=== PATIENT | female | born 1975 | race Caucasian/White ===

== ENCOUNTER 2019-02-19 10:00 | Inpatient (IN) | payer OTHER ==
[2019-02-19] MEDS ORDERED: DEXTROSE 5%-LACTATED RINGERS 1,000 ML IV SCH (11:30)
[2019-02-19] MEDS ORDERED: ELECTROLYTE-148 SOLN 1,000 ML IV SCH ×2 (16:00→21:30)
[2019-02-19] MEDS ORDERED: AMPICILLIN SODIUM 2 GM VIAL IVPB STA (16:00)
[2019-02-19 16:41] VITALS: BMI 34.0
[2019-02-19 17:10] LABS: BASO % 0.5 % (0-2.0); EOS % 0.1 % (0-4.5); HEMATOCRIT 37.8 % (32.4-45.2); HEMOGLOBIN 12.9 GM/dL (10.7-15.3); LYMPH % 13.3 % (8-40); MCH 31.7 pg (25.7-33.7); MCHC 34.1 g/dl (32.0-36.0); MEAN CELL VOLUME 92.9 fl (80-96); MEAN PLT VOLUME 10.9 fl (7.5-11.1); MONO % 6.1 % (3.8-10.2); PLATELET COUNT 171 K/MM3 (134-434); RBC 4.07 M/mm3 (3.60-5.2); RDW 13.8 % (11.6-15.6); WHITE BLOOD COUNT 13.8 K/mm3 (4.0-10.0)
[2019-02-19 17:24] LABS: INR 0.92 (0.83-1.09); PROTHROMBIN TIME (PATIENT) 10.8 SEC (9.7-13.0)
[2019-02-19 17:27] LABS: ACTIVATED PTT 27.1 SECONDS (25.2-36.5)
[2019-02-19] MEDS ORDERED: PROMETHAZINE HCL 25 MG/1 ML VIAL IVPB ONE (17:35)
[2019-02-19] MEDS ORDERED: BUTORPHANOL TARTRATE 2 MG/ML VIAL IVPB ONE (17:35)
[2019-02-19 17:45] LABS: BLOOD UREA NITROGEN 6.9 mg/dL (7-18); CALCIUM 8.6 mg/dL (8.5-10.1); CREATININE 0.6 mg/dL (0.55-1.3); POTASSIUM 3.7 mmol/L (3.5-5.1)
[2019-02-19] MEDS: AMPICILLIN SODIUM 1 GM VIAL IVPB SCH (19:55)
[2019-02-19] MEDS ORDERED: BUTORPHANOL TARTRATE 1 MG/ML VIAL IVPB ONE (21:17)
[2019-02-19] MEDS ORDERED: PROMETHAZINE HCL 25 MG/1 ML VIAL IVPUSH ONE (21:17)
--- NOTE | 2019-02-19 21:17 | HP ---
Past Medical History - Primary Care Physician PCP:: Ese Garcia - Admission Chief Complaint: srom at 37 weeks History of Present Illness: 43 yo P1 EDC EGA 37 week with co srom and vaginal bleeding, GBS positive, gestational DM diet controlled, AMA Hx of placenta previa admitted LD No abdominal pain or ruq pain History Source: Patient Limitations to Obtaining History: No Limitations - Past Medical History ...: 5 ...Para: 1 ...Term: 1 ...: 0 ...Spon : 0 ...Induced : 3 ...Multiple Gestation: 0 ...EDC by Sono: 03/11/19 Endocrine: Yes: Diabetes Mellitus - Past Surgical History Past Surgical History: Yes: None Hx Myomectomy: No Hx Transabdominal Cerclage: No - Smoking History Smoking history: Current every day smoker Have you smoked in the past 12 months: Yes Aproximately how many cigarettes per day: 5 - Alcohol/Substance Use Hx Alcohol Use: No History of Substance Use: reports: None - Social History Usual Living Arrangement: Yes: With Spouse History of Recent Travel: No Home Medications - Allergies Allergies/Adverse Reactions: Allergies Allergy/AdvReac Type Severity Reaction Status Date / Time No Known Allergies Allergy Verified 02/19/19 10:35 - Home Medications Home Medications: Ambulatory Orders Vitamins (Sjr) - 1 tab PO DAILY 02/19/19 Physical Exam - Maternity Vital Signs: Vital Signs Temperature 99.0 F 02/19/19 20:00 Pulse Rate 59 L 02/19/19 20:15 Respiratory Rate 18 02/19/19 20:15 Blood Pressure 110/56 L 02/19/19 20:15 O2 Sat by Pulse Oximetry (%) Constitutional: Yes: Well Nourished, No Distress Eyes: Yes: WNL HENT: Yes: WNL Cardiovascular: Yes: WNL Lungs: Clear to auscultation - Abdominal Exam/OB Fundal Height: 37 Number of Fetuses: Single Presentation: Vertex Monitor Mode: External Category: I Decelerations: None - Vaginal Exam/OB Dilatation (cm): 6 Effacement (%): 90 Amniotic Membrane Status: Ruptured Amniotic Fluid: Yes: Blood Stained Presentation: Vertex/Position Station: -3 - Physical Exam Musculoskeletal: Yes: WNL Extremities: Yes: WNL Edema: No - Labs Lab Results: CBC, BMP 02/19/19 17:05 02/19/19 17:05 Hemorrhage Risk Assessment - Risk Factors High Risk Factors: Yes: Placenta previa, low lying Risk Score: 2 Risk Level: High Risk Problem List - Problems (1) Vaginal bleeding with contractions and pain in patient after first trimester Code(s): O46.8X1 - OTHER ANTEPARTUM HEMORRHAGE, FIRST TRIMESTER (2) Gestational diabetes Code(s): O24.419 - GESTATIONAL DIABETES MELLITUS IN , UNSP CONTROL Qualifiers: Gestational diabetes mellitus control: diet-controlled Trimester: third trimester Qualified Code(s): O24.410 - Gestational diabetes mellitus in , diet controlled (3) 37 weeks gestation of Code(s): Z3A.37 - 37 WEEKS GESTATION OF (4) Elderly multigravida in third trimester Code(s): O09.523 - SUPERVISION OF ELDERLY MULTIGRAVIDA, THIRD TRIMESTER (5) Elderly multigravida with antepartum condition or complication Code(s): O09.529 - SUPERVISION OF ELDERLY MULTIGRAVIDA, UNSPECIFIED TRIMESTER (6) GBS (group B Streptococcus carrier), +RV culture, currently Code(s): O99.820 - STREPTOCOCCUS B CARRIER STATE COMPLICATING Assessment/Plan iup at 37 week vaginal bleeding hx of low lying placenta AMA GBS gestational DM diet controlled 01/30 BPP Cat1 Plan admit to LD ampicillin will give epidural
--- NOTE | 2019-02-19 21:25 | PN ---
Ante-Partal Exam - Subjective Subjective: Pt with vaginal bleeding prior to this exam clear fluid upon exam Cat 2 tracing internal monitoring SP epidural Plan mclean catheter close observation discussed possiblity of CS if bleeeding returns of if tracing does not improve Vital Signs: Vital Signs Temperature 99.0 F 02/19/19 21:00 Pulse Rate 60 02/19/19 21:00 Respiratory Rate 18 02/19/19 21:00 Blood Pressure 109/58 L 02/19/19 21:00 O2 Sat by Pulse Oximetry (%) Bleeding: Yes Bleeding Description: Moderate Headache: No Visual changes: No Right upper quadrant pain: No - Contractions Contractions: Yes Regularity: Regular Intensity: Mild/Mod Monitor Mode: External - Exam during Labor Heart Rate: 125 Variability: Minimal Category: II Monitor Accelerations: Present Monitor Decelerations: Variable Exam: Vaginal Dilatation (cm): 6 Effacement (%): 90 Amniotic Membrane Status: Ruptured Presentation: Vertex Station: -3 - Intrapartum Hemorrhage Risk Risk Score: 1 Risk Level: Medium Risk - Assessment/Plan Assessment/Plan: Gestational DM - diet controlled GBS positive Cat 2 vaginal bleeding - stopped presently Hx of low lying placenta Plan Close observation mclean cath may need CS if bleeding returns or if tracing does not improve pt desires vaginal delivery
[2019-02-19] MEDS ORDERED: OXYTOCIN 30 UNITS in 0.9% NS 30 UNIT/500 ML INFUS.BAG IVPB SCH (21:30)
--- NOTE | 2019-02-19 21:30 | PN ---
Ante-Partal Exam - Subjective Subjective: Pt with still bleeding Vital Signs: Vital Signs Temperature 99.0 F 02/19/19 21:00 Pulse Rate 60 02/19/19 21:00 Respiratory Rate 18 02/19/19 21:00 Blood Pressure 109/58 L 02/19/19 21:00 O2 Sat by Pulse Oximetry (%) Bleeding: Yes Bleeding Description: Moderate Headache: No Visual changes: No Right upper quadrant pain: No - Contractions Contractions: Yes Monitor Mode: External - Exam during Labor Heart Rate: 125 Variability: Minimal Category: II Monitor Accelerations: Present Monitor Decelerations: Variable Exam: Vaginal Dilatation (cm): 6 cm Effacement (%): 90 Amniotic Membrane Status: Ruptured Amniotic Fluid: Clear Presentation: Vertex Station: -3 - Intrapartum Hemorrhage Risk High Risk Factors: New Active Bleeding Risk Score: 2 Risk Level: High Risk - Assessment/Plan Assessment/Plan: ass Vaginal bleeding Hx of Low lying placenta Cat 2 gestational DM GBS positive Plan section pt and agree notify neonatology Notify anesthesiologist
[2019-02-19] MEDS ORDERED: CITRIC ACID/SODIUM CITRATE 30 ML UNIT-DOSE CUP PO ONE (21:57)
[2019-02-19] MEDS ORDERED: SENNOSIDES/DOCUSATE COMBO (SENNA PLUS) TABLET (UD) PO PRN (21:58)
[2019-02-19] MEDS ORDERED: METHYLERGONOVINE MALEATE 0.2 MG/1 ML AMP IM PRN (21:58)
[2019-02-19] MEDS ORDERED: LIDO 2%/EPI 1:200000 PRESRVFRE (20 ML SDVIAL) ONE (22:08)
[2019-02-19] MEDS ORDERED: ceFAZolin SODIUM 1 GM VIAL ONE (22:25)
[2019-02-19] MEDS ORDERED: OXYTOCIN 10 UNITS/ML VIAL ONE (22:39)
[2019-02-19] MEDS ORDERED: morphine SULFATE/PF 0.5 MG/ML (2cc Syringe - QUVA) ONE ×3 (22:46)
[2019-02-19] MEDS: OXYTOCIN 20 UNITS in 0.9% NS 20 UNIT/1,000 ML INFUS.BAG IV SCH (23:15)
--- NOTE | 2019-02-19 23:17 | OP ---
Operative Note - Note: Operative Date: 02/19/19 Pre-Operative Diagnosis: Abnormal vaginal bleeding. non reassuring tracing. IUP at 37 weeks. geatational DM. GBS positive. AMA. Operation: Primary low transverse Section Findings: uterus with blood clots seen upon opening uterus LIve female 9 9 Post-Operative Diagnosis: Same as Pre-op Surgeon: Ese Garcia Formal Wear Rental Clerk: Lynn Dolan Anesthesia: Epidural Estimated Blood Loss (mls): 600 Operative Report Dictated: Yes
[2019-02-20] MEDS: AMPICILLIN SODIUM 1 GM VIAL IVPB SCH (00:44)
[2019-02-20] MEDS: CEFAZOLIN 1 GM/D5W 1 GM/50 ML BAG IVPB SCH ×3 (01:24→18:39)
[2019-02-20] MEDS: IBUPROFEN 600 MG TABLET (FP) PO PRN ×3 (02:46→21:23)
[2019-02-20] MEDS: SIMETHICONE 80 MG TAB.CHEW (FP) PO PRN ×2 (02:46→21:23)
--- NOTE | 2019-02-20 06:29 | OP ---
DATE OF OPERATION: 02/19/2019 PREOPERATIVE DIAGNOSES: Vaginal bleeding, nonreassuring tracing, gestational diabetes, advanced maternal age, intrauterine at 37 weeks. OPERATION: Primary section. POSTOPERATIVE DIAGNOSES: Vaginal bleeding, nonreassuring tracing, gestational diabetes, advanced maternal age, intrauterine at 37 weeks. Live female . SURGEON: Ese Garcia MD INTERNATIONAL PROJECT ENGINEER: Lynn Dolan MD ANESTHESIA: Epidural. ANESTHESIOLOGIST: Nathaniel Polo MD FINDINGS: Uterus noted to have clots within the uterus. Placenta was noted to be intact. DESCRIPTION OF PROCEDURE: Patient was taken to the operating room. Placed in supine position, prepped and draped in usual sterile fashion. After epidural anesthesia had been given, the Pfannenstiel skin incision was made through the patient's previous scar. Cautery was then used to go through layers of abdominal wall to the level of the fascia. Fascia was cut in the midline. Cautery was then used to open the fascia in a smiling fashion. Kochers were then used to bluntly, sharply dissect the rectus muscle off the fascia. Muscle was split in the midline. Peritoneal cavity was then entered and carried upward and downward. Bladder retractor was then placed. Vesicouterine reflection was then entered, and the bladder was bluntly dissected out of the operative field. Scalpel was then used to make a low transverse uterine incision. Incision was carried upward using bandage scissors. Vacuum extraction was then performed at the table due to baby was transverse and high position. It was delivered without difficulty. Shoulders were delivered without difficulty. Cord was clamped and cut, and infant was handed to overnight caregiver. Cord blood was obtained. Cord pH was obtained. Placenta was manually extracted from the uterus. Again, uterus was noted to have blood clots in the lower segments. Those were cleaned out, and uterus was then exteriorized and closed using 0 Biosyn suture in continuous locking stitch 2nd layer imbricating the 1st layer. Hemostasis was achieved. Tubes and ovaries were noted to be normal. Uterus interiorized. Abdominal cavity cleaned with clean lap pads. Abdominal sweep done. Peritoneum closed using 0 Biosyn suture. Muscle was approximated in the midline using 0 Biosyn suture. Fascia was then closed using 0 Vicryl suture in 2 parts. The skin was then closed using 3-0 Vicryl in subcuticular fashion. Wound was washed and dressed. Patient tolerated the procedure well. Estimated blood loss was 600 mL. Carmen [id number]
[2019-02-20 08:21] LABS: BASO % 0.3 % (0-2.0); HEMATOCRIT 35.6 % (32.4-45.2); HEMOGLOBIN 12.2 GM/dL (10.7-15.3); LYMPH % 11.3 % (8-40); MCH 32.2 pg (25.7-33.7); MCHC 34.4 g/dl (32.0-36.0); MEAN CELL VOLUME 93.5 fl (80-96); MEAN PLT VOLUME 11.3 fl (7.5-11.1); MONO % 4.4 % (3.8-10.2); PLATELET COUNT 171 K/MM3 (134-434); RDW 13.9 % (11.6-15.6); WHITE BLOOD COUNT 15.8 K/mm3 (4.0-10.0)
[2019-02-20] MEDS: PRENATAL VITAMINS W/ FOLIC ACID TABLET (FP) PO SCH (09:09)
--- NOTE | 2019-02-20 09:59 | PN ---
Progress Note (SOAP) - Current Medications Current Medications: Active Medications Bisacodyl (Dulcolax Suppository -) 10 mg RC PRN PRN PRN Reason: CONSTIPATION Ferrous Sulfate (Feosol -) 325 mg PO BID [facility] Parenteral Electrolytes (Plasma-Lyte 148 -) 1,000 mls @ 125 mls/hr IV ASDIR [facility] Last Admin: 02/19/19 21:00 Dose: 125 mls/hr Cefazolin Sodium (Ancef 1 Gm Premixed Ivpb -) 1 gm in 50 mls @ 100 mls/hr IVPB Q8H-IV [facility] Stop: 02/21/19 01:59 Last Admin: 02/20/19 09:10 Dose: 100 mls/hr Oxytocin/Sodium Chloride (Normal Saline+20 Units Oxytocin -) 20 unit in 1,000 mls @ 125 mls/hr IV ASDIR [facility] Last Admin: 02/19/19 23:15 Dose: 125 mls/hr Ibuprofen (Motrin -) 600 mg PO Q4H PRN PRN Reason: PAIN LEVEL 1 - 3 Last Admin: 02/20/19 02:46 Dose: 600 mg Methylergonovine Maleate (Methergine Injection -) 0.2 mg IM Q4H PRN PRN Reason: Excessive Bleeding (L&D) Oxycodone HCl (Roxicodone -) 5 mg PO Q4H PRN PRN Reason: PAIN LEVEL 4 - 6 Oxycodone HCl (Roxicodone -) 10 mg PO Q4H PRN PRN Reason: PAIN LEVEL 7 - 10 Multivit/Folic Acid/Iron ( Vitamins (Sjr) -) 1 tab PO DAILY [facility] Last Admin: 02/20/19 09:09 Dose: Not Given Senna/Docusate Sodium (Pericolace -) 2 tablet PO HS PRN PRN Reason: CONSTIPATION Simethicone (Mylicon -) 80 mg PO Q4H PRN PRN Reason: GAS Last Admin: 02/20/19 02:46 Dose: 80 mg - Objective Vital Signs: Vital Signs Temperature 98.8 F 02/20/19 05:45 Pulse Rate 86 02/20/19 05:45 Respiratory Rate 18 02/20/19 08:00 Blood Pressure 110/67 02/20/19 05:45 O2 Sat by Pulse Oximetry (%) 97 02/20/19 00:05 Constitutional: Yes: Well Nourished, No Distress Gastrointestinal: Yes: WNL, Soft, Abdomen, Obese ....Post : Yes: Uterus firm, Uterus non-tender Breast(s): Yes: WNL Musculoskeletal: Yes: WNL Extremities: Yes: WNL Wound/Incision: Yes: Dressing Dry and Intact Labs Lab Results: CBC, BMP 02/20/19 07:00 02/19/19 17:05 Problem List - Problems (1) Vaginal bleeding with contractions and pain in patient after first trimester Code(s): O46.8X1 - OTHER ANTEPARTUM HEMORRHAGE, FIRST TRIMESTER (2) Gestational diabetes Code(s): O24.419 - GESTATIONAL DIABETES MELLITUS IN , UNSP CONTROL Qualifiers: Gestational diabetes mellitus control: diet-controlled Trimester: third trimester Qualified Code(s): O24.410 - Gestational diabetes mellitus in , diet controlled (3) 37 weeks gestation of Code(s): Z3A.37 - 37 WEEKS GESTATION OF (4) Elderly multigravida in third trimester Code(s): O09.523 - SUPERVISION OF ELDERLY MULTIGRAVIDA, THIRD TRIMESTER (5) Elderly multigravida with antepartum condition or complication Code(s): O09.529 - SUPERVISION OF ELDERLY MULTIGRAVIDA, UNSPECIFIED TRIMESTER (6) GBS (group B Streptococcus carrier), +RV culture, currently Code(s): O99.820 - STREPTOCOCCUS B CARRIER STATE COMPLICATING (7) deliv NOS-unsp Code(s): [id number] - (8) deliv NOS-unsp Code(s): [id number] - Assessment/Plan POD1 Stable Plan OOB continue present management
--- NOTE | 2019-02-20 15:56 | PN ---
Progress Note (short form) - Note Progress Note: Anesthesiology post op note POD#1. S/P under epidural. Pat seen and examined. VSS. Ambulating. No apparent post anestesia complications.
[2019-02-20] MEDS: oxyCODONE HCL 5 MG TABLET PO PRN (21:23)
[2019-02-20] MEDS ORDERED: BISACODYL 10 MG SUPP.RECT RC PRN (21:58)
[2019-02-20] MEDS: OXYTOCIN 20 UNITS in 0.9% NS 20 UNIT/1,000 ML INFUS.BAG IV SCH (22:03)
[2019-02-21] MEDS: PRENATAL VITAMINS W/ FOLIC ACID TABLET (FP) PO SCH (09:48)
--- NOTE | 2019-02-21 09:53 | PN ---
Progress Note (SOAP) - Subjective Chief Complaint: Pt found sitting in chair - Current Medications Current Medications: Active Medications Bisacodyl (Dulcolax Suppository -) 10 mg RC PRN PRN PRN Reason: CONSTIPATION Ferrous Sulfate (Feosol -) 325 mg PO BID [facility] Oxytocin/Sodium Chloride (Normal Saline+20 Units Oxytocin -) 20 unit in 1,000 mls @ 125 mls/hr IV ASDIR [facility] Last Admin: 02/20/19 22:03 Dose: Not Given Ibuprofen (Motrin -) 600 mg PO Q4H PRN PRN Reason: PAIN LEVEL 1 - 3 Last Admin: 02/20/19 21:23 Dose: 600 mg Methylergonovine Maleate (Methergine Injection -) 0.2 mg IM Q4H PRN PRN Reason: Excessive Bleeding (L&D) Oxycodone HCl (Roxicodone -) 5 mg PO Q4H PRN PRN Reason: PAIN LEVEL 4 - 6 Oxycodone HCl (Roxicodone -) 10 mg PO Q4H PRN PRN Reason: PAIN LEVEL 7 - 10 Last Admin: 02/20/19 21:23 Dose: 10 mg Multivit/Folic Acid/Iron ( Vitamins (Sjr) -) 1 tab PO DAILY [facility] Last Admin: 02/20/19 09:09 Dose: Not Given Senna/Docusate Sodium (Pericolace -) 2 tablet PO HS PRN PRN Reason: CONSTIPATION Simethicone (Mylicon -) 80 mg PO Q4H PRN PRN Reason: GAS Last Admin: 02/20/19 21:23 Dose: 80 mg - Objective Vital Signs: Vital Signs Temperature 98.1 F 02/21/19 08:48 Pulse Rate 70 02/21/19 08:48 Respiratory Rate 20 02/21/19 08:48 Blood Pressure 130/74 02/21/19 08:48 O2 Sat by Pulse Oximetry (%) 97 02/20/19 00:05 Constitutional: Yes: Well Nourished Gastrointestinal: Yes: WNL, Soft, Abdomen, Obese ....Post : Yes: Uterus firm, Uterus non-tender Breast(s): Yes: WNL Musculoskeletal: Yes: WNL Extremities: Yes: WNL Edema: No Wound/Incision: Yes: Dressing Dry and Intact Neurological: Yes: WNL, Alert, Oriented Labs Lab Results: CBC, BMP 02/20/19 07:00 02/19/19 17:05 Problem List - Problems (1) Vaginal bleeding with contractions and pain in patient after first trimester Code(s): O46.8X1 - OTHER ANTEPARTUM HEMORRHAGE, FIRST TRIMESTER (2) Gestational diabetes Code(s): O24.419 - GESTATIONAL DIABETES MELLITUS IN , UNSP CONTROL Qualifiers: Gestational diabetes mellitus control: diet-controlled Trimester: third trimester Qualified Code(s): O24.410 - Gestational diabetes mellitus in , diet controlled (3) 37 weeks gestation of Code(s): Z3A.37 - 37 WEEKS GESTATION OF (4) Elderly multigravida in third trimester Code(s): O09.523 - SUPERVISION OF ELDERLY MULTIGRAVIDA, THIRD TRIMESTER (5) Elderly multigravida with antepartum condition or complication Code(s): O09.529 - SUPERVISION OF ELDERLY MULTIGRAVIDA, UNSPECIFIED TRIMESTER (6) GBS (group B Streptococcus carrier), +RV culture, currently Code(s): O99.820 - STREPTOCOCCUS B CARRIER STATE COMPLICATING (7) deliv NOS-unsp Code(s): [id number] - (8) deliv NOS-unsp Code(s): [id number] - Assessment/Plan POD 2 SP CS Stable Plan will rx tylenol OOB continue present management
[2019-02-21] MEDS ORDERED: ACETAMINOPHEN 325 MG TABLET (FP) PO PRN (09:54)
[2019-02-21] MEDS: SIMETHICONE 80 MG TAB.CHEW (FP) PO PRN ×2 (13:09→22:07)
[2019-02-21] MEDS: IBUPROFEN 600 MG TABLET (FP) PO PRN ×2 (13:09→22:07)
[2019-02-21] MEDS: oxyCODONE HCL 5 MG TABLET PO PRN ×2 (13:10→23:14)
[2019-02-21] MEDS: FERROUS SO4 325 MG TABLET (FP) PO SCH (22:07)
[2019-02-21] MEDS: OXYTOCIN 20 UNITS in 0.9% NS 20 UNIT/1,000 ML INFUS.BAG IV SCH (23:13)
[2019-02-22] MEDS: oxyCODONE HCL 5 MG TABLET PO PRN (08:25)
[2019-02-22] MEDS: SIMETHICONE 80 MG TAB.CHEW (FP) PO PRN (08:25)
[2019-02-22] MEDS: IBUPROFEN 600 MG TABLET (FP) PO PRN (08:27)
[2019-02-22 08:51] LABS: BASO % 0.3 % (0-2.0); EOS % 0.7 % (0-4.5); HEMOGLOBIN 11.3 GM/dL (10.7-15.3); LYMPH % 15.6 % (8-40); MCHC 34.2 g/dl (32.0-36.0); MEAN CELL VOLUME 93.8 fl (80-96); MEAN PLT VOLUME 10.6 fl (7.5-11.1); MONO % 7.5 % (3.8-10.2); NEUT % 75.9 % (42.8-82.8); PLATELET COUNT 172 K/MM3 (134-434); RBC 3.52 M/mm3 (3.60-5.2); RDW 13.8 % (11.6-15.6); WHITE BLOOD COUNT 9.6 K/mm3 (4.0-10.0)
[2019-02-22] MEDS: PRENATAL VITAMINS W/ FOLIC ACID TABLET (FP) PO SCH (09:12)
[2019-02-22] MEDS: FERROUS SO4 325 MG TABLET (FP) PO SCH (09:12)
[2019-02-22 10:33] VITALS: TEMP 98.4
--- NOTE | 2019-02-22 13:05 | DS ---
Physical Exam-MARKET RESEARCH INTERVIEWER Vital Signs: Vital Signs Temperature 98.4 F 02/22/19 10:00 Pulse Rate 62 02/22/19 10:00 Respiratory Rate 20 02/22/19 10:00 Blood Pressure 124/67 02/22/19 10:00 O2 Sat by Pulse Oximetry (%) 97 02/20/19 00:05 Constitutional: Yes: Well Nourished, No Distress Labs: CBC, BMP 02/22/19 07:33 02/19/19 17:05 Delivery - Delivery Type of Anesthesia: Epidural Episiotomy/Laceration: None EBL (cc): 600 Delivery, Single - Stages of Labor Date 1st Stage Initiatied: 02/19/19 Time 1st Stage Initiated: 13:00 Date of Delivery: 02/19/19 Time of Delivery: 22:45 Time Placenta Delivered: 22:46 - Condition of Infant Body Joiner/Commercial Credit Analyst Present: Yes Name: Susan Broussard Infant Gender: Female Weight: 5 lb 5 oz Total Hours ROM (Hrs/Mins): 7HRS 6MIN - 1 Minute Total Score: 9 5 Minutes Total Score: 9 - Feeding Plan Initial Plan: Elected not to breastfeed exclusively throughout hospitalization Discharge Summary Reason For Visit: LABOR Current Active Problems 37 weeks gestation of (Acute) deliv NOS-unsp (Acute) deliv NOS-unsp (Acute) Elderly multigravida in third trimester (Acute) Elderly multigravida with antepartum condition or complication (Acute) GBS (group B Streptococcus carrier), +RV culture, currently (Acute) Gestational diabetes (Acute) Vaginal bleeding with contractions and pain in patient after first trimester (Acute) Procedures: Principal: Primary Section Hospital Course: unremarkable Condition: Good - Instructions Diet, Activity, Other Instructions: Patient evaluated. Report given to MD. D/c home with instructions. Keep f/u apt. Patient verbalized understanding. D/c home in stable and undelivered condition. Referrals: Ese Garcia MD [Staff Physician] - - Home Medications Comprehensive Discharge Medication List: Ambulatory Orders Vitamins (Sjr) - 1 tab PO DAILY 02/19/19
[2019-02-22 14:48] VITALS: BP 128/64; PULSE 68
== END 2019-02-22 13:50 | disposition home or self-care (01) | DRG 540 ==
LOC: JDEL 10:00 → JLDR 15:50 → J3W 02-20 00:55
PROVIDERS: ADMIT Obstetrics & Gynecology; ATTEND Obstetrics & Gynecology
PROC: 10D00Z1 Extraction of Products of Conception, Low, Open Approach (ICD-10-PCS; principal; 2019-02-19)
DX: O67.8 Other intrapartum hemorrhage (principal); O24.429 Gestational diabetes mellitus in childbirth, unspecified control; O76 Abnormality in fetal heart rate and rhythm complicating labor and delivery; O99.824 Streptococcus B carrier state complicating childbirth; Z3A.37 37 weeks gestation of pregnancy; Z37.0 Single live birth
CPT/HCPCS: 36415; 36600; 80048; 82803; 82962; 85025; 85610; 85730; 86593; 86850; 86900; 86901

== ENCOUNTER 2019-02-27 18:22 | Emergency (ER) | payer OTHER ==
[2019-02-27 18:27] VITALS: BMI 32.3
--- NOTE | 2019-02-27 19:50 | PDOC ---
Attending Attestation - Resident Resident Name: Pepe Elliott - ED Attending Attestation I have performed the following: I have examined & evaluated the patient, The case was reviewed & discussed with the resident, I agree w/resident's findings & plan - HPI HPI: 02/28/19 00:02 Pt has a BALL and she has HTN; we will treat with labetalol for HTN/eclampsia - Physicial Exam PE: 02/28/19 00:02 Agree with resident exam. No neuro findings. - Medical Decision Making 02/28/19 00:02 Patient Name: SMILEY BRUMFIELD THIS IS A PRELIMINARY REPORT FROM IMAGING TRAVELING CONSTRUCTION SUPERINTENDENT EXAM: CT head without contrast IMAGES: 140 DATE OF EXAM: 2019-02-27 22:29:07 REASON FOR EXAM: Headache COMPARISON: None. FINDINGS: The brain parenchyma demonstrates normal attenuation without focal mass or mass effect. The ventricles are not enlarged. No acute intracranial hemorrhage or acute infarction. The visualized aspect of the paranasal sinuses and mastoid air cells are unremarkable. No acute fracture. 02/28/19 21:52 We spoke to patient's inside contractor sales, who wants us to start 200mglabetalol daily and she will follow patient. I gave pt a 1 mos supply. Labs are normal and she is stable for d/c home
--- NOTE | 2019-02-27 19:52 | PDOC ---
History of Present Illness - General Chief Complaint: Headache Stated Complaint: HEADACHE TO LT SIDE X 3 DAYS Time Seen by Provider: 02/27/19 19:49 History Source: Patient - History of Present Illness Initial Comments: 02/27/19 20:05 Ms. Bradshaw is a 43 y/o woman with no PMH p/w three days of worsening L sided headache, one week s/p delivery. She reports waking up three days ago and noting a mild headache, which has progressively worsened over the last three days. She describes the pain as throbbing, non-radiating, localized to her left mid-hemisphere, rates it an 11/10 now, and worse when laying flat. She denies any nausea, vomiting, fevers, head trauma, numbness, tingling, changes in vision, light sensitivity, jaw pain, neck pain, or weakness. She denies any history of migraine, or history of similar headache. She reports that her delivery was uncomplicated and that her baby is healthy. PCP - None Control Panel Assembler - Dr. Johana Irene Past History - Past Medical History Allergies/Adverse Reactions: Allergies Allergy/AdvReac Type Severity Reaction Status Date / Time No Known Allergies Allergy Verified 02/27/19 18:27 Home Medications: Ambulatory Orders Ibuprofen [Motrin -] 600 mg PO QID #28 tablet 02/22/19 Labetalol HCl [Normodyne -] 200 mg PO DAILY #30 tablet 02/27/19 Asthma: No Cancer: No Cardiac Disorders: No COPD: No Diabetes: Yes (gestational) HTN: No Seizures: No Thyroid Disease: No - Suicide/Smoking/Psychosocial Hx Smoking History: Never smoked Have you smoked in the past 12 months: Yes Number of Cigarettes Smoked Daily: 5 Hx Alcohol Use: No Drug/Substance Use Hx: No Hx Substance Use Treatment: No Review of Systems - Review of Systems Able to Perform ROS?: Yes Comments:: 02/27/19 20:36 ROS: GENERAL/CONSTITUTIONAL: No fever or chills. No weakness. HEAD, EYES, EARS, NOSE AND THROAT: No change in vision. No ear pain or discharge. No sore throat. CARDIOVASCULAR: No chest pain or shortness of breath RESPIRATORY: No cough, wheezing, or hemoptysis. GASTROINTESTINAL: No nausea, vomiting, diarrhea or constipation. GENITOURINARY: No dysuria, frequency, or change in urination. MUSCULOSKELETAL: No joint or muscle swelling or pain. No neck or back pain. SKIN: No rash NEUROLOGIC: Headache. No vertigo, loss of consciousness, or change in strength/ sensation. ENDOCRINE: No increased thirst. No abnormal weight change HEMATOLOGIC/LYMPHATIC: No anemia, easy bleeding, or history of blood clots. ALLERGIC/IMMUNOLOGIC: No hives or skin allergy. *Physical Exam - Vital Signs Last Vital Signs Temp Pulse Resp BP Pulse Ox 98.5 F 70 18 156/78 99 02/27/19 18:24 02/27/19 18:24 02/27/19 18:24 02/27/19 18:24 02/27/19 18:24 - Physical Exam Comments: 02/27/19 20:38 PE: GENERAL: Awake, alert, and fully oriented, moderate HEAD: No signs of trauma, normocephalic, atraumatic EYES: PERRLA, EOMI, sclera anicteric, conjunctiva clear ENT: Auricles normal inspection, hearing grossly normal, nares patent, oropharynx clear without exudates. Moist mucosa NECK: Normal ROM, supple, no lymphadenopathy, JVD, or masses LUNGS: No distress, speaks full sentences, clear to auscultation bilaterally HEART: Regular rate and rhythm, normal S1 and S2, no murmurs, rubs or gallops, peripheral pulses normal and equal bilaterally. ABDOMEN: Soft, nontender, normoactive bowel sounds. No guarding, no rebound. No masses EXTREMITIES : Normal inspection, Normal range of motion, no edema. No clubbing or cyanosis NEUROLOGICAL: Cranial nerves II through XII grossly intact. Normal speech, normal gait, no focal sensorimotor deficits. No temporal tenderness. SKIN: Warm, Dry, normal turgor, no rashes or lesions noted ED Treatment Course - LABORATORY CBC & Chemistry Diagram: 02/27/19 22:37 02/27/19 22:37 Medical Decision Making - Medical Decision Making 02/27/19 20:11 43 y/o F with recent delivery p/w three days of worsening headache with no red flag signs, no N/V/changes in vision, with slow progressive onset, no infectious signs or symptoms most consistent with post- headache/ tension headache vs pre-eclampsia post-. SAH also possible in post- period, less likely given progressive onset (rather than rapid onset) and lack of N/V. Plan: Labetalol for BP control CT Head non-con Dispo: Likely home pending imaging 02/27/19 22:[address] Irene's covering physician. Plan for LFTs, Platelet count then likely discharge home. 02/28/19 00:03 Labs wnl, CT head negative for acute process. Plan for discharge home with labetolol, mainframe developer follow up. *DC/Admit/Observation/Transfer Diagnosis at time of Disposition: Pre-eclampsia, mild, Headache Qualifiers: Headache type: unspecified Headache chronicity pattern: unspecified pattern Intractability: not intractable Qualified Code(s): R51 - Headache - Discharge Dispostion Disposition: HOME Condition at time of disposition: Stable Decision to Admit order: No - Prescriptions Prescriptions: Labetalol HCl [Normodyne -] 200 mg PO DAILY #30 tablet - Referrals - Patient Instructions Printed Discharge Instructions: DI for Pre-eclampsia Additional Instructions: You were seen in the emergency department for a strong headache, and we also found that your blood pressure was high. We spoke with an mainframe developer from Dr. Irene 's group, checked your blood work, and conducted a ct of your head. Everything returned within normal limits. We are prescribing you Labetolol, a medication to help control your blood pressure. Please follow up with your primary care doctor, and your mainframe developer within the next week, as soon as you are able to make an appointment. Please return to the emergency department if you develop severe pain that wakes you up from sleep, high fevers, or headache associated with nausea and vomiting. - Post Discharge Activity
[2019-02-27] MEDS ORDERED: LABETALOL HCL 100 MG TABLET (FP) PO ONE ×2 (20:30→21:31)
[2019-02-27] MEDS ORDERED: LABETALOL HCL 100 MG TABLET (FP) ONE ×2 (20:58→21:39)
[2019-02-27 22:46] LABS: BASO % 0.6 % (0-2.0); EOS % 1.1 % (0-4.5); HEMATOCRIT 39.2 % (32.4-45.2); HEMOGLOBIN 13.2 GM/dL (10.7-15.3); LYMPH % 30.4 % (8-40); MCH 31.8 pg (25.7-33.7); MCHC 33.6 g/dl (32.0-36.0); MEAN CELL VOLUME 94.5 fl (80-96); MEAN PLT VOLUME 9.7 fl (7.5-11.1); MONO % 9.3 % (3.8-10.2); NEUT % 58.6 % (42.8-82.8); PLATELET COUNT 273 K/MM3 (134-434); RBC 4.14 M/mm3 (3.60-5.2); RDW 13.4 % (11.6-15.6); WHITE BLOOD COUNT 9.5 K/mm3 (4.0-10.0)
[2019-02-27 23:12] LABS: ALBUMIN 3.1 g/dl (3.4-5.0); BILIRUBIN,TOTAL 0.4 mg/dL (0.2-1); BLOOD UREA NITROGEN 13.2 mg/dL (7-18); CALCIUM 8.9 mg/dL (8.5-10.1); CREATININE 0.7 mg/dL (0.55-1.3); POTASSIUM 3.9 mmol/L (3.5-5.1); TOT PROT 6.3 g/dl (6.4-8.2)
[2019-02-28] MEDS ORDERED: IBUPROFEN 600 MG TABLET (FP) PO ONE ×2 (00:03→00:13)
[2019-02-28] MEDS ORDERED: METOCLOPRAMIDE HCL INJECTION 10 MG/2 ML VIAL IM ONE (00:19)
[2019-02-28] MEDS ORDERED: LIDOCAINE 5% TOPICAL PATCH TP ONE (00:19)
[2019-02-28] MEDS ORDERED: LIDOCAINE 5% TOPICAL PATCH ONE (00:26)
[2019-02-28] MEDS ORDERED: METOCLOPRAMIDE HCL INJECTION 10 MG/2 ML VIAL ONE (00:27)
[2019-02-28 00:41] VITALS: BP 125/69; PULSE 57; TEMP 97.9
--- NOTE | 2019-02-28 16:38 | EKG ---
Test Reason : Blood Pressure : / mmHG Vent. Rate : 054 BPM Atrial Rate : 054 BPM P-R Int : 172 ms QRS Dur : 074 ms QT Int : 420 ms P-R-T Axes : 036 029 055 degrees QTc Int : 398 ms POOR DATA QUALITY, INTERPRETATION MAY BE ADVERSELY AFFECTED SINUS BRADYCARDIA NONSPECIFIC T WAVE ABNORMALITY ABNORMAL ECG NO PREVIOUS ECGS AVAILABLE Confirmed by ELSIE CLINE MD ([id number]) on 02/28/2019 4:37:46 PM Referred By: Confirmed By:ELSIE CLINE MD
[2019-02-28] MEDS ORDERED: LIDOCAINE PATCH REMOVAL MC SCH (22:00)
== END 2019-02-28 00:41 | disposition home or self-care (01) ==
LOC: JER 18:22
PROC: 3E023GC Introduction of Other Therapeutic Substance into Muscle, Percutaneous Approach (ICD-10-PCS; principal; 2019-02-27)
DX: O90.89 Other complications of the puerperium, not elsewhere classified (principal); O14.95 Unspecified pre-eclampsia, complicating the puerperium; Z09 Encounter for follow-up examination after completed treatment for conditions other than malignant neoplasm; Z86.32 Personal history of gestational diabetes
CPT/HCPCS: 36415; 70450-TC; 80053; 85025; 93005; 93010; 96372; 99283-25

== ENCOUNTER 2019-07-13 19:04 | Emergency (ER) | payer OTHER ==
--- NOTE | 2019-07-13 19:36 | PDOC ---
Rapid Medical Evaluation Time Seen by Provider: 07/13/19 19:29 Medical Evaluation: Allergies Allergy/AdvReac Type Severity Reaction Status Date / Time No Known Allergies Allergy Verified 02/27/19 18:27 07/13/19 19:29 This patient had brief evaluation by me cc: headache x 3 days HPI: Patient reports headache x 3 days with nausea. States pain is to left side of head. States took no medication so far. PE: NAD HEENT: PERRLA, non tender left ear gait steady orders: urine , analgesia and antiemetic This patient will proceed to the emergency room for further evaluation,. Discharge Disposition - Diagnosis Headache - Referrals - Patient Instructions - Post Discharge Activity
[2019-07-13] MEDS ORDERED: ACETAMINOPHEN 500 MG TABLET (FP) PO ONE (19:37)
[2019-07-13] MEDS ORDERED: METOCLOPRAMIDE HCL 10 MG TABLET (FP) PO ONE ×2 (19:37→21:54)
[2019-07-13 19:38] VITALS: BMI 28.3
[2019-07-13] MEDS ORDERED: SODIUM CHLORIDE 1,000 ML IV STA (21:42)
[2019-07-13] MEDS ORDERED: METOCLOPRAMIDE HCL INJECTION 10 MG/2 ML VIAL IVPUSH ONE (21:42)
[2019-07-13] MEDS ORDERED: ACETAMINOPHEN 1000 MG/100 ML VIAL (NON FORMULARY) IVPB ONE (21:43)
--- NOTE | 2019-07-13 21:48 | PDOC ---
Documentation entered by Qian Loaiza SCRIBE, acting as scribe for Geri Ricks MD. Geri Ricks MD: This documentation has been prepared by the Josse acuna Xhesika, SCRIBE, under my direction and personally reviewed by me in its entirety. I confirm that the documentation accurately reflects all work, treatment, procedures, and medical decision making performed by me. History of Present Illness - General Chief Complaint: Lightheaded Stated Complaint: DIZZINESS Time Seen by Provider: 07/13/19 19:29 History Source: Patient Exam Limitations: No Limitations - History of Present Illness Initial Comments: 07/13/19 21:40 The patient is a 43 y/o female with a PMH of gestational DM who presents to the ED for 4-5 days of L sided headache and dizziness. The patient describes her symptoms as room spinning, radiating down to her neck, associated with nausea , making her body tilt to the left. Pt states she had headaches, was seen here in 02/2019, head CT was unremarkable. Pt states her symptoms now are much more intense and severe. The patient denies chest pain, shortness of breath, fever, chills, cough, vomiting, diarrhea and constipation. Denies dysuria, frequency, urgency and hematuria. Allergies: NKDA Past surgical history: 2 c-sections Social history: ppd smoker since the age of 15 Past History - Past Medical History Allergies/Adverse Reactions: Allergies Allergy/AdvReac Type Severity Reaction Status Date / Time No Known Allergies Allergy Verified 07/13/19 19:34 Home Medications: Ambulatory Orders Meclizine HCl [Antivert -] 25 mg PO QID PRN #20 tablet MDD 4 tabs 07/14/19 Asthma: No Cancer: No Cardiac Disorders: No COPD: No Diabetes: Yes (gestational) HTN: No Seizures: No Thyroid Disease: No - Psycho Social/Smoking Cessation Hx Smoking History: Never smoked Have you smoked in the past 12 months: No Number of Cigarettes Smoked Daily: 5 Information on smoking cessation initiated: No Hx Alcohol Use: No Drug/Substance Use Hx: No Hx Substance Use Treatment: No Review of Systems - Review of Systems Able to Perform ROS?: Yes Comments:: 07/13/19 21:40 GENERAL/CONSTITUTIONAL: No fever or chills. No weakness. HEAD, EYES, EARS, NOSE AND THROAT: No change in vision. No ear pain or discharge. No sore throat. CARDIOVASCULAR: No chest pain or shortness of breath. RESPIRATORY: No cough, wheezing, or hemoptysis. GASTROINTESTINAL: +nausea. No vomiting, diarrhea or constipation. GENITOURINARY: No dysuria, frequency, or change in urination. MUSCULOSKELETAL: No joint or muscle swelling or pain. No neck or back pain. SKIN: No rash NEUROLOGIC: + headache, dizziness. No vertigo, loss of consciousness, or change in strength/sensation. ENDOCRINE: No increased thirst. No abnormal weight change. HEMATOLOGIC/LYMPHATIC: No anemia, easy bleeding, or history of blood clots. ALLERGIC/IMMUNOLOGIC: No hives or skin allergy. *Physical Exam - Vital Signs Last Vital Signs Temp Pulse Resp BP Pulse Ox 97.9 F 78 18 127/62 98 07/13/19 19:35 07/13/19 19:35 07/13/19 19:35 07/13/19 19:35 07/13/19 19:35 - Physical Exam 07/13/19 21:40 GENERAL: Awake, alert, and fully oriented, in no acute distress HEAD: No signs of trauma EYES: PERRLA, EOMI, sclera anicteric, conjunctiva clear. + Nystagmus 3 beats to the left. ENT: Auricles normal inspection, hearing grossly normal, nares patent, oropharynx clear without exudates. Moist mucosa NECK: Normal ROM, supple, no lymphadenopathy, JVD, or masses LUNGS: Breath sounds equal, clear to auscultation bilaterally. No wheezes, and no crackles HEART: Regular rate and rhythm, normal S1 and S2, no murmurs, rubs or gallops ABDOMEN: Soft, nontender, normoactive bowel sounds. No guarding, no rebound. No masses EXTREMITIES: Normal range of motion, no edema. No clubbing or cyanosis. No cords, erythema, or tenderness NEUROLOGICAL: aao x3, Cranial nerves II through XII grossly intact. No drift. No slurred speech. 5/5 motor strength. Normal speech SKIN: Warm, Dry, normal turgor, no rashes or lesions noted. ED Treatment Course - LABORATORY CBC & Chemistry Diagram: 07/13/19 22:18 07/13/19 22:18 Medical Decision Making - Medical Decision Making 07/13/19 23:24 43-year-old female with 4 to 5 days of left-sided headache associated with nausea vomiting dizziness Her symptoms get worse when she changes position Differential includes posterior stroke, vertigo 07/13/19 23:46 Negative test CBC is unremarkable Chemistries are unremarkable In reviewing her old charts noted in February 27, 2019 she came in with left- sided headache for 3 days and had a CAT scan did not show any intracranial pathology, no hemorrhage, no infarct, no masses, clear sinuses 07/14/19 00:53 this patient 's headache is gone and she is resting receiving the rest of her Tylenol and fluids 07/14/19 01:42 07/14/19 02:23 Patient feels much better and is ambulating with ease, no ataxia, motor strength 5/5 bilaterally she states that about 4 years ago she had a GI bleed brought on by excessive use of NSAIDs for menstrual cramping and other musculoskeletal pains and so therefore avoids those medications She feels that the Tylenol simply does not help her symptoms We will refer her to a neurologist for her headaches to try to find a medication that helps her IMP Headache,Vertigo resolved Discharge - Discharge Information Problems reviewed: Yes Clinical Impression/Diagnosis: Vertigo Headache Qualifiers: Headache type: tension-type Headache chronicity pattern: episodic headache Intractability: not intractable Qualified Code(s): G44.219 - Episodic tension- type headache, not intractable Condition: Stable Disposition: HOME - Admission No - Additional Discharge Information Prescriptions: Meclizine HCl [Antivert -] 25 mg PO QID PRN #20 tablet MDD 4 tabs PRN Reason: Vertigo - Follow up/Referral Referrals: Benito Morgan MD [Staff Physician] - Angela Pink MD [Staff Physician] - Zackery Cameron MD [Staff Physician] - Margot Whitfield MD [Staff Physician] - - Patient Discharge Instructions Patient Printed Discharge Instructions: DI for Vertigo, DI for Hormonal and Tension Headaches, DI for Benign Paroxysmal Positional Vertigo Additional Instructions: PLEASE CARDIOPULMONARY SUPERVISOR YOUR MEDICINE AT OUR PHARMACY RETURN FOR ANY RECURRENT OR WORSENING SYMPTOMS CALL FOR AN APPOINTMENT WITH NEUROLOGY - Post Discharge Activity
[2019-07-13] MEDS ORDERED: ACETAMINOPHEN INJECTION 100 ML IVPB ONE (21:54)
[2019-07-13 22:29] LABS: BASO % 1.3 % (0-2.0); EOS % 0.7 % (0-4.5); HEMATOCRIT 39.8 % (32.4-45.2); HEMOGLOBIN 13.7 GM/dL (10.7-15.3); LYMPH % 39.1 % (8-40); MCHC 34.5 g/dl (32.0-36.0); MEAN CELL VOLUME 92.9 fl (80-96); MONO % 6.2 % (3.8-10.2); NEUT % 52.7 % (42.8-82.8); PLATELET COUNT 305 K/MM3 (134-434); RBC 4.29 M/mm3 (3.60-5.2); WHITE BLOOD COUNT 9.3 K/mm3 (4.0-10.0)
[2019-07-13 23:18] LABS: ALBUMIN 3.6 g/dl (3.4-5.0); BILIRUBIN,TOTAL 0.8 mg/dL (0.2-1); BLOOD UREA NITROGEN 10.8 mg/dL (7-18); CALCIUM 9.3 mg/dL (8.5-10.1); CREATININE 0.7 mg/dL (0.55-1.3); POTASSIUM 4.5 mmol/L (3.5-5.1); TOT PROT 6.6 g/dl (6.4-8.2)
[2019-07-13] MEDS ORDERED: MECLIZINE HCL 25 MG TABLET (FP) PO ONE (23:22)
[2019-07-13] MEDS ORDERED: MECLIZINE HCL 12.5 MG TABLET ONE (23:26)
[2019-07-14 02:53] VITALS: BP 94/52; PULSE 64; TEMP 98.1
== END 2019-07-14 02:53 | disposition home or self-care (01) ==
LOC: JER 19:04
PROC: 3E033NZ Introduction of Analgesics, Hypnotics, Sedatives into Peripheral Vein, Percutaneous Approach (ICD-10-PCS; principal; 2019-07-13)
PROC: 3E033GC Introduction of Other Therapeutic Substance into Peripheral Vein, Percutaneous Approach (ICD-10-PCS; 2019-07-13)
PROC: 3E0337Z Introduction of Electrolytic and Water Balance Substance into Peripheral Vein, Percutaneous Approach (ICD-10-PCS; 2019-07-13)
DX: R51 Headache (principal); E11.9 Type 2 diabetes mellitus without complications
CPT/HCPCS: 36415; 80053; 84703; 85025; 96361; 96374; 96375; 99284-25; J0131; J7030